=== PATIENT | male | born 1975 | race Caucasian/White ===

== ENCOUNTER → 2024-10-12 | Outpatient (CLI) | payer BC, SELFPAY ==
[2024-10-12 15:48] LABS: Misc Send Out* See Sep Rpt
[2024-10-12 16:56] LABS: Syphilis Nonreactive (Nonreactive)
[2024-10-12 17:18] LABS: Hepatitis B Surface Antigen Non Reactive (Non React); Hepatitis C Antibody Non Reactive (Non React)
[2024-10-13 11:02] LABS: Chlamydia trachomatis PCR Negative (Not Detect); Neisseria Gonorrhoeae DNA PCR Negative (Not Detect); Trichomonas Negative (Negative)
[2024-10-15 05:03] LABS: HIV-1 RNA, QN PCR NOT DETECTED copies/mL
[2024-10-15 06:32] LABS: HIV-1 RNA, QN PCR Log NOT DETECTED
[2024-10-15 22:05] LABS: HSV1 IgG Type Specific Ab >58.00 INDEX
[2024-10-16 06:58] LABS: HSV2 IgG Type Specific Ab <0.90 INDEX; Hepatitis B Core Ab,Total* NONREACTIVE
== END | disposition home or self-care (01) ==
LOC: COPL 15:18
PROVIDERS: PCP Internal Medicine; Referring Provider Nurse Practitioner Family; Visit Provider Nurse Practitioner Family
DX: Z11.3 Encounter for screening for infections with a predominantly sexual mode of transmission (principal)
CPT/HCPCS: 36415; 86695; 86696; 86704; 86780; 86803; 87340; 87491; 87536; 87591; 87661